=== PATIENT | male | born 1960 | race Caucasian/White ===

== ENCOUNTER 2016-08-10 13:41 | Emergency (ER) | payer OTHER ==
[2016-08-10 14:16] LABS: BASO % 0.4 % (0.0-1.0); EOS # 0.1 K/mm3 (0.0-0.50); EOS % 2.2 % (0.0-3.0); LARGE UNSTAINED CELL # 0.2 K/mm3 (0.0-0.4); LARGE UNSTAINED CELL % 3.6 % (0.0-4.0); LYMPH # 1.6 K/mm3 (1.5-4.5); MEAN CORPUSCULAR HEMOGLOBIN 30.8 pg (27.0-33.0); MEAN CORPUSCULAR HGB CONC 32.9 g/dl (32.0-36.5); MEAN CORPUSCULAR VOLUME 93.7 fl (80.0-96.0); MONO # 0.4 K/mm3 (0.0-0.8); MONO % 7.3 % (0.0-5.0); NEUTROPHILS # 3.1 K/mm3 (1.8-7.7); NEUTROPHILS % 57.4 % (36.0-66.0); PLATELET COUNT, AUTOMATED 257 k/mm3 (150-450); RED CELL DISTRIBUTION WIDTH 14.1 % (11.5-14.5); WHITE BLOOD COUNT 5.4 K/mm3 (4.0-10.0)
[2016-08-10 14:27] LABS: ANION GAP 9 MEQ/L (8-16); BLOOD UREA NITROGEN 14 MG/DL (7-18); CALCIUM LEVEL 8.7 MG/DL (8.5-10.1); CARBON DIOXIDE LEVEL 28 MEQ/L (21-32); CHLORIDE LEVEL 106 MEQ/L (98-107); GLOMERULAR FILTRATION RATE > 60.0 (>56); GLUCOSE, FASTING 111 MG/DL (70-105); POTASSIUM SERUM 3.8 MEQ/L (3.5-5.1); SODIUM LEVEL 143 MEQ/L (136-145)
--- NOTE | 2016-08-10 17:09 | REP ---
PA and lateral chest: Comparison is 07/05/2012. There is a focal zone of discoid atelectasis peripherally in the right upper lobe. There is a small stable nodule inferiorly in the right lung, unchanged, compatible with granuloma. The lung allred otherwise clear. No pleural effusions. Cardiac size is normal. The elise, mediastinum, bony thorax are unchanged and unremarkable. Signed by Ever Martinez MD 08/10/2016 05:01 P
--- NOTE | 2016-08-10 21:27 | EDDOCDS ---
Physician Documentation [facility] Name: Neville Dorman Age: 55 yrs Sex: Male : 1960 Arrival Date: 08/10/2016 Time: 13:41 Bed 10 Private MD: Disposition: 08/10 18:38 I have independently interviewed and examined the patient, and I agree with the br1 investigation, diagnosis and treatment plan as documented by the Resident. Disposition: 08/10/16 21:16 Discharged to Home/Self Care. Impression: Chest pain, unspecified, Syncope and collapse. - Condition is Stable. - Discharge Instructions: Near-Syncope. - Medication Reconciliation, Local Pharmacy Hours form. - Follow up: Rajat Motley MD; When: Call to arrange an appointment; Reason: Recheck today's complaints. - Problem is new. - Symptoms have improved. Historical: - Allergies: Cephalexin; - Home Meds: 1. aspirin 81 mg oral TbEC once daily 2. Crestor 10 mg Oral tab 1 tab once daily 3. metformin 750 mg Oral Tb24 1 tab once daily 4. Protonix 40 mg Oral TbEC 1 tab once daily 5. lisinopril 20 mg oral tab once daily - PMHx: Anxiety; Diabetes - NIDDM: controlled; GERD; Hypercholesterolemia; Hypertension; left hip replacement; CT; - PSHx: Hernia repair; Orthopedic Surgery; Coronary Stents; - Social history: Smoking status: Patient states former smoker of tobacco. No barriers to communication noted, The patient speaks fluent Macedonian, Speaks appropriately for age. - Family history: Not pertinent. - : The pt / caregiver states he / she is not on anticoagulants. Home medication list is obtained from pill bottles. - Exposure Risk Screening:: None identified. Vital Signs: 13:51 BP 138 / 78 (auto/); bcj 13:52 Pulse 66 MON; bcj 13:52 BP 146 / 81; Pulse 80; Resp 16; Temp 97.9; Pulse Ox 97% on R/A; Weight 132.45 kg / 292 bcj lbs; Height 6 ft. 2 in. (187.96 cm); Pain 0/10; 17:28 BP 142 / 67 (auto/); bcj 17:29 Pulse 62 MON; Pulse Ox 97% ; bcj 17:43 BP 149 / 63 (auto/); bcj 17:43 Pulse 62 MON; Pulse Ox 97% ; bcj 17:58 BP 105 / 52 (auto/); bcj 17:58 Pulse 64 MON; Pulse Ox 95% ; bcj 18:13 BP 124 / 74 (auto/); bcj 18:13 Pulse 62 MON; Pulse Ox 95% ; bcj 18:28 BP 130 / 72 (auto/); mlc 18:28 Pulse 62 MON; Pulse Ox 95% ; mlc 18:58 BP 118 / 67 (auto/); mlc 18:58 Pulse 66 MON; Pulse Ox 95% ; mlc 19:28 Pulse 72 MON; Pulse Ox 93% ; mlc 19:28 BP 137 / 62 (auto/); mlc 19:43 BP 140 / 63 (auto/); mlc 19:53 Pulse 70 MON; Pulse Ox 96% ; mlc 19:58 Pulse 68 MON; Pulse Ox 92% ; mlc 19:58 BP 132 / 61 (auto/); mlc 20:13 BP 114 / 53 (auto/); mlc 20:13 Pulse 68 MON; Pulse Ox 94% ; mlc 20:28 BP 126 / 61 (auto/); mlc 20:28 Pulse 62 MON; Pulse Ox 91% ; mlc 20:43 BP 131 / 62 (auto/); mlc 20:43 Pulse 62 MON; Pulse Ox 91% ; mlc 20:58 BP 129 / 58 (auto/); mlc 21:07 Pulse 64 MON; Pulse Ox 91% ; mlc 21:25 BP 137 / 75; Pulse 68; Resp 20; Temp 98.1; Pulse Ox 94% ; Pain 0/10; mlc 13:52 Body Mass Index 37.49 (132.45 kg, 187.96 cm) [facility] MDM: 13:45 ECG WITH READING ER PHYS+CARDIAG ordered. EDMS 13:55 Sas Programmer Remote/Pulse Ox/q 30 min VS ordered. br1 13:55 IV Saline Lock ordered. br1 13:55 Rhythm Strip to chart ordered. br1 13:55 Undress patient appropriately for examination ordered. br1 13:56 Basic Metabolic Profile Ordered. EDMS 13:56 CBC with Diff Ordered. EDMS 13:56 Cardiac Injury Profile Ordered. EDMS 13:56 Troponin Ordered. EDMS 14:58 Vital Signs ordered. br1 15:00 Cardiac Injury Profile Reviewed. jo4 15:00 Troponin Reviewed. jo4 15:00 Basic Metabolic Profile Reviewed. jo4 15:01 CBC with Diff Reviewed. jo4 15:01 Orthostatic VS ordered. jo4 15:02 Redraw CIP &Troponin (put time in details section) ordered. jo4 15:02 Repeat EKG (put time details section) ordered. jo4 15:05 Chest, 2 View (pa\E\lat) Ordered. EDMS 15:15 Repeat EKG (put time details section) complete. ar3 15:15 Redraw CIP &Troponin (put time in details section) complete. ar3 15:16 CARDIAC MARKER PANEL Ordered. EDMS 15:17 ECG WITH READING ER PHYS ordered. EDMS 16:02 Financial registration complete. gjb 16:37 [facility] Payment Agreement was scanned into [employer] and attached to record. gjb 17:06 REGULAR+DIET ordered. EDMS 18:17 Chest, 2 View (pa\E\lat) Reviewed. jo4 18:38 ED course: Seen with resident agree with findings. Patient has episode of weakness, br1 fatigue, diaphoresis, near syncope. No chest pain or shortness of breath and symptoms now resolved. Labs, EKG, chest Xray unrevealing. Plan serial EKG, enzymes, re-eval. Patient agrees with plan.. 21:14 CARDIAC MARKER PANEL Reviewed. cs11 Signatures: Dispatcher [employer] Marino Dolan RN RN bcj Roggie, Brian, MD MD br1 Alma Christie, TUFTER TUFTER ar3 Farhat Knott, DO cs11 Roselia Molina RN RN mlc Beck, Gabriela b Rina Mcpherson, DO DO jo4 The chart was reviewed and I authenticate all verbal orders and agree with the evaluation and treatment provided.Attachments: 16:37 [facility] Payment Agreement gjb MTDD
--- NOTE | 2016-08-10 21:27 | EDDOCDS ---
Nurse's Notes [facility] Name: Neville Dorman Age: 55 yrs Sex: Male : 1960 Arrival Date: 08/10/2016 Time: 13:41 Bed 10 Private MD: Diagnosis: Chest pain, unspecified;Syncope and collapse Presentation: 08/10 13:57 Presenting complaint: Patient states: has been feeling weak for last day or so - bcj developed chest pain dizziness this am. still feels dizzy on arrival. states feels more tired than usual. denies SOB resp distress. denies nausea vomiting. brief episode of sweating resolved now. Aspirin was taken CASE COORDINATOR. Adult Sepsis Screening: The patient does not have new or worsening altered mentation. Patient's respiratory rate is less than 22. Systolic blood pressure is greater than 100. Patient has a qSOFA score of 0- Negative Sepsis Screen. Suicide/Homicide risk assessment- the patient denies having any suicidal and/or homicidal ideations and does not present with any other emotional, behavioral or mental health complaints. Status: Patient is not a office services specialist or dependent. Transition of care: patient was not received from another setting of care. 13:57 Acuity: [place]QUALE Level 2 bcj 13:57 Method Of Arrival: Ambulance bcj Triage Assessment: 14:03 General: Appears in no apparent distress, comfortable, Behavior is cooperative. Pain: bcj Location: head Pain currently is 8 out of 10 on a pain scale. HIV screening NA for this visit Offered previously. Cardiovascular: Chest pain is described as mild, radiates Does not radiate. episodes last > 5 minutes began 2 hours prior to arrival. Respiratory: Airway is patent Respiratory effort is even, unlabored, Respiratory pattern is regular, symmetrical. Derm: Skin is pink, warm & dry. Historical: - Allergies: Cephalexin; - Home Meds: 1. aspirin 81 mg oral TbEC once daily 2. Crestor 10 mg Oral tab 1 tab once daily 3. metformin 750 mg Oral Tb24 1 tab once daily 4. Protonix 40 mg Oral TbEC 1 tab once daily 5. lisinopril 20 mg oral tab once daily - PMHx: Anxiety; Diabetes - NIDDM: controlled; GERD; Hypercholesterolemia; Hypertension; left hip replacement; [place]; - PSHx: Hernia repair; Orthopedic Surgery; Coronary Stents; - Social history: Smoking status: Patient states former smoker of tobacco. No barriers to communication noted, The patient speaks fluent Indian, Speaks appropriately for age. - Family history: Not pertinent. - : The pt / caregiver states he / she is not on anticoagulants. Home medication list is obtained from pill bottles. - Exposure Risk Screening:: None identified. Screenin:57 Screening information is obtained from the patient. Fall risk: No risks identified. bcj Assistance ADL's: requires no assistance with activities of daily living. Abuse/DV Screen: The patient / caregiver reports he/she is: not in a situation that causes fear, pain or injury. Nutritional screening: No deficits noted. Advance Directives: Currently, there is. home support is adequate. Assessment: 16:57 General: Appears in no apparent distress, comfortable, Behavior is cooperative. Pain: bcj Denies pain. Cardiovascular: Rhythm is sinus rhythm. 18:15 General: Appears in no apparent distress, comfortable, Behavior is cooperative. Pain: bcj Denies pain. Cardiovascular: Rhythm is sinus rhythm. Derm: Skin is pink, warm & dry. 19:18 General: Appears in no apparent distress, comfortable, Behavior is appropriate for age, mlc cooperative, pleasant. Pain: Denies pain. Neurological: Level of Consciousness is awake, alert, obeys commands, Oriented to person, place, time. Cardiovascular: Capillary refill < 3 seconds Heart tones S1 S2 present Rhythm is regular Chest pain is denied. Respiratory: Airway is patent Respiratory effort is even, unlabored, Respiratory pattern is regular, Breath sounds are clear bilaterally. Derm: Skin is pink, warm & dry. 19:54 Reassessment: Patient appears in no apparent distress at this time. Patient denies pain mlc at this time. no changes since prior. resp easy/unlabored. . 21:08 Reassessment: Patient appears in no apparent distress at this time. General: Appears mlc comfortable, to be sleeping. Respiratory: Airway is patent Respiratory effort is even, unlabored, Respiratory pattern is regular. 21:25 General: Appears in no apparent distress, comfortable, Behavior is cooperative. Pain: mlc Denies pain. Neurological: Level of Consciousness is awake, alert, Oriented to person, place, time. Respiratory: Airway is patent Respiratory effort is even, unlabored, Respiratory pattern is regular. Vital Signs: 13:51 BP 138 / 78 (auto/); bcj 13:52 Pulse 66 MON; bcj 13:52 BP 146 / 81; Pulse 80; Resp 16; Temp 97.9; Pulse Ox 97% on R/A; Weight 132.45 kg; j Height 6 ft. 2 in. (187.96 cm); Pain 0/10; 17:28 BP 142 / 67 (auto/); bcj 17:29 Pulse 62 MON; Pulse Ox 97% ; bcj 17:43 BP 149 / 63 (auto/); bcj 17:43 Pulse 62 MON; Pulse Ox 97% ; bcj 17:58 BP 105 / 52 (auto/); bcj 17:58 Pulse 64 MON; Pulse Ox 95% ; bcj 18:13 BP 124 / 74 (auto/); bcj 18:13 Pulse 62 MON; Pulse Ox 95% ; bcj 18:28 BP 130 / 72 (auto/); mlc 18:28 Pulse 62 MON; Pulse Ox 95% ; mlc 18:58 BP 118 / 67 (auto/); mlc 18:58 Pulse 66 MON; Pulse Ox 95% ; mlc 19:28 Pulse 72 MON; Pulse Ox 93% ; mlc 19:28 BP 137 / 62 (auto/); mlc 19:43 BP 140 / 63 (auto/); mlc 19:53 Pulse 70 MON; Pulse Ox 96% ; mlc 19:58 Pulse 68 MON; Pulse Ox 92% ; mlc 19:58 BP 132 / 61 (auto/); mlc 20:13 BP 114 / 53 (auto/); mlc 20:13 Pulse 68 MON; Pulse Ox 94% ; mlc 20:28 BP 126 / 61 (auto/); mlc 20:28 Pulse 62 MON; Pulse Ox 91% ; mlc 20:43 BP 131 / 62 (auto/); mlc 20:43 Pulse 62 MON; Pulse Ox 91% ; mlc 20:58 BP 129 / 58 (auto/); mlc 21:07 Pulse 64 MON; Pulse Ox 91% ; mlc 21:25 BP 137 / 75; Pulse 68; Resp 20; Temp 98.1; Pulse Ox 94% ; Pain 0/10; mlc 13:52 Body Mass Index 37.49 (132.45 kg, 187.96 cm) [facility] Vitals: 14:03 Log In Time N/A - ambulance arrival. [facility] 16:57 Refer to monitor trend for complete vital signs trends. [facility] ED Course: 13:42 Patient visited by Alma Christie PCA. ar3 13:42 Patient moved to Waiting ar3 13:42 Patient moved to 3 ar3 13:59 Triage Initiated bcj 14:04 Rina Mcpherson DO is PHCP. jo4 14:04 Michael Hackett MD is Attending Physician. jo4 14:07 Patient visited by Marino Castorena RN. bcj 15:00 Patient visited by Rina Mcpherson DO. jo4 15:00 Patient visited by Rina Mcpherson DO. jo4 15:11 Patient visited by Marino Castorena RN. bcj 15:58 Patient visited by Michael Hackett MD. br1 16:36 Patient name changed from Neville\S\V\S\Deveines\S\ to Neville\S\ \S\Deveines. EDMS 16:37 [facility] Payment Agreement was scanned into [employer] and attached to record. gjb 16:57 No apparent distress. Resting quietly. awaiting re-evaluation by ER physician. bcj 16:57 The patient / caregiver is instructed regarding the plan of care and ED course. Patient bcj has correct armband on for positive identification. Placed in gown. Placed in psych safe attire. Call light in reach. Side rails up X2. Adult w/ patient. school bus monitor on. Pulse ox on. NIBP on. 16:57 Inserted saline lock: 18 gauge in right antecubital area. Labs drawn. (by ED staff). bcj Sent per order to lab. 17:00 Patient visited by Marino Castorena RN. bcj 17:25 Patient moved to 10 pml 17:29 No apparent distress. Resting quietly. awaiting re-evaluation by ER physician. bcj 17:29 IV is intact. bcj 17:44 Chest, 2 View (pa\E\lat) Returned. EDMS 18:16 Patient visited by Marino Castorena RN. bcj 19:16 Roselia Molina RN is Primary Nurse. mlc 19:19 Patient visited by Roselia Molina RN. mlc 19:37 Attending Physician role handed off by Michael Hackett MD cs11 19:37 Farhat Knott DO is Attending Physician. cs11 19:54 CARDIAC MARKER PANEL Sent. mlc 19:56 Patient visited by Roselia Molina RN. mlc 20:00 Patient visited by Frances Valera PCA. lawrence 20:00 EKG done. (by ED staff). Reviewed by Farhat Knott DO. lawrence 21:07 Patient visited by Frances Valera PCA. lawrence 21:09 Patient visited by Roselia Molina RN. mlc 21:15 Rajat Motley MD is Referral Physician. cs11 21:25 Discontinued IV lock intact, bleeding controlled, pressure dressing applied, No mlc redness/swelling at site. No procedures done that require assistance. Order Results: Lab Order: Basic Metabolic Profile; SPEC'M 08/10/16 13:57 Test: GLUCOSE, FASTING; Value: 111; Range: 70-105; Abnormal: Above high normal; Units: MG/DL; Status: F Test: BLOOD UREA NITROGEN; Value: 14; Range: 7-18; Units: MG/DL; Status: F Test: CREATININE FOR GFR; Value: 0.90; Range: 0.70-1.30; Units: MG/DL; Status: F Test: GLOMERULAR FILTRATION RATE; Value: > 60.0; Range: >56; Status: F Test: SODIUM LEVEL; Value: 143; Range: 136-145; Units: MEQ/L; Status: F Test: POTASSIUM SERUM; Value: 3.8; Range: 3.5-5.1; Units: MEQ/L; Status: F Test: CHLORIDE LEVEL; Value: 106; Range: 98-107; Units: MEQ/L; Status: F Test: CARBON DIOXIDE LEVEL; Value: 28; Range: 21-32; Units: MEQ/L; Status: F Test: ANION GAP; Value: 9; Range: 8-16; Units: MEQ/L; Status: F Test: CALCIUM LEVEL; Value: 8.7; Range: 8.5-10.1; Units: MG/DL; Status: F Test Note: ; Units are mL/min/1.73 m2 Chronic Kidney Disease Staging per NKF: Stage I & II GFR >=60 Normal to Mildly Decreased Stage III GFR 30-59 Moderately Decreased Stage IV GFR 15-29 Severely Decreased Stage V GFR <15 Very Little GFR Left ESRD GFR <15 on HOSPITAL WELLNESS COORDINATOR Lab Order: CBC with Diff; SPEC'M 08/10/16 13:57 Test: WHITE BLOOD COUNT; Value: 5.4; Range: 4.0-10.0; Units: K/mm3; Status: F Test: RED BLOOD COUNT; Value: 4.70; Range: 4.30-6.10; Units: M/mm3; Status: F Test: HEMOGLOBIN; Value: 14.5; Range: 14.0-18.0; Units: g/dl; Status: F Test: HEMATOCRIT; Value: 44.0; Range: 42.0-52.0; Units: %; Status: F Test: MEAN CORPUSCULAR VOLUME; Value: 93.7; Range: 80.0-96.0; Units: fl; Status: F Test: MEAN CORPUSCULAR HEMOGLOBIN; Value: 30.8; Range: 27.0-33.0; Units: pg; Status: F Test: MEAN CORPUSCULAR HGB CONC; Value: 32.9; Range: 32.0-36.5; Units: g/dl; Status: F Test: RED CELL DISTRIBUTION WIDTH; Value: 14.1; Range: 11.5-14.5; Units: %; Status: F Test: PLATELET COUNT, AUTOMATED; Value: 257; Range: 150-450; Units: k/mm3; Status: F Test: NEUTROPHILS %; Value: 57.4; Range: 36.0-66.0; Units: %; Status: F Test: LYMPH %; Value: 29.0; Range: 24.0-44.0; Units: %; Status: F Test: MONO %; Value: 7.3; Range: 0.0-5.0; Abnormal: Above high normal; Units: %; Status: F Test: EOS %; Value: 2.2; Range: 0.0-3.0; Units: %; Status: F Test: BASO %; Value: 0.4; Range: 0.0-1.0; Units: %; Status: F Test: LARGE UNSTAINED CELL %; Value: 3.6; Range: 0.0-4.0; Units: %; Status: F Test: NEUTROPHILS #; Value: 3.1; Range: 1.8-7.7; Units: K/mm3; Status: F Test: LYMPH #; Value: 1.6; Range: 1.5-4.5; Units: K/mm3; Status: F Test: MONO #; Value: 0.4; Range: 0.0-0.8; Units: K/mm3; Status: F Test: EOS #; Value: 0.1; Range: 0.0-0.50; Units: K/mm3; Status: F Test: BASO #; Value: 0.0; Range: 0.0-0.2; Units: K/mm3; Status: F Test: LARGE UNSTAINED CELL #; Value: 0.2; Range: 0.0-0.4; Units: K/mm3; Status: F Lab Order: Cardiac Injury Profile; [facility] 08/10/16 13:57 Test: CPK CREATINE PHOSPHOKINASE; Value: 152; Range: 39-308; Units: U/L; Status: F Test: CK-MB VALUE MASS; Value: 1.9; Range: 0.0-3.6; Units: NG/ML; Status: F Test: MB/CK RELATIVE INDEX; Value: 1.25; Range: < OR =4; Status: F Test Note: ; DIAGNOSIS CRITERIA MMB ng/ml Relative Index (RI) NON-AMI < or = 5 N/A FRYE ZONE > 5 < or = 4 AMI > 5 > 4 Lab Order: Troponin; [facility] 08/10/16 13:57 Test: TROPONIN I; Value: < 0.02; Range: < 0.10; Units: NG/ML; Status: F Test Note: ; Troponin I Reference Interval for Nanomech LOCI: 99th Percentile= 0.00-0.045 ng/ml Risk Stratification: <= 0.10 ng/ml Decreased Risk for Adverse Clinical Events. 0.10-1.50 ng/ml Increased Risk for Adverse Clinical Events. Evaluation of additional criterion and/or repeat testing in 2-6 hours is suggested to rule out myocardial damage. >= 1.50 ng/ml Indicative of Myocardial Injury. Lab Order: CARDIAC MARKER PANEL; [facility] 08/10/16 19:50 Test: CPK CREATINE PHOSPHOKINASE; Value: 121; Range: 39-308; Units: U/L; Status: F Test: CK-MB VALUE MASS; Value: 1.3; Range: 0.0-3.6; Units: NG/ML; Status: F Test: MB/CK RELATIVE INDEX; Value: 1.07; Range: < OR =4; Status: F Test: TROPONIN I; Value: < 0.02; Range: < 0.10; Units: NG/ML; Status: F Test Note: ; DIAGNOSIS CRITERIA MMB ng/ml Relative Index (RI) NON-AMI < or = 5 N/A FRYE ZONE > 5 < or = 4 AMI > 5 > 4 Radiology Order: Chest, 2 View (pa\E\lat) Test: Chest, 2 View (pa\E\lat) REASON FOR EXAMINATION: Shortness of Breath; PA and lateral chest:; ; Comparison is 07/05/2012.; ; There is a focal zone of discoid atelectasis peripherally in the right upper; lobe.; ; There is a small stable nodule inferiorly in the right lung, unchanged,; compatible with granuloma.; ; The lung allred otherwise clear. No pleural effusions. Cardiac size is normal.; The elise, mediastinum, bony thorax are unchanged and unremarkable.; ; ; Signed by; Ever Martinez MD 08/10/2016 05:01 P; Outcome: 21:16 Discharge ordered by Provider. cs11 21:25 Discharge Assessment: Patient awake, alert and oriented x 3. No cognitive and/or mlc functional deficits noted. Patient verbalized understanding of disposition instructions. patient administered narcotics - no. The following High Risk Discharge criteria are identified: None. Discharged to home ambulatory. Condition: good Condition: stable. Discharge instructions given to patient, Instructed on discharge instructions, follow up and referral plans. Demonstrated understanding of instructions, Pt was receptive of discharge instructions/ teaching. No special radiology studies were completed. Property sent home with patient. 21:26 Patient left the ED. mlc Signatures: Dispatcher [employer] EDMarino Butler RN RN bcj Roggie, Brian, MD MD br1 Alma Christie, MANAGER CHEMISTRY MANAGER CHEMISTRY ar3 Frances Valera, MANAGER CHEMISTRY MANAGER CHEMISTRY Jigna Degroot RN RN pml Schiff, Craig, DO DO cs11 Roselia Molina RN RN mlc Beck, Gabriela gjb Oosthuizen, Jane, DO DO jo4 MTDD
--- NOTE | 2016-08-11 13:04 | ECGEPIP ---
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
--- NOTE | 2016-08-11 13:11 | ECGEPIP ---
Stationary ECG Study [facility] - ED Test Date: 2016-08-10 Pat Name: FAVIO MENDENHALL Department: Room: - Gender: M Sqe: kirsty : 1960 Requested By: PARESH HARRIS Order Number: [id number] Reading MD: Rocío Webster Measurements Intervals [place] Rate: 67 P: -85 [place]: 176 QRS: 36 QRSD: 97 T: 18 QT: 387 QTc: 411 Interpretive Statements SINUS RHYTHM NSTTW ABNORMALITY SIMILAR 08/10/16 13:51 Electronically Signed On 08-11-2016 13:11:29 EST by Rocío Webster
--- NOTE | 2016-08-12 22:27 | EDDOCDS ---
Physician Documentation [facility] Name: Neville Dorman Age: 55 yrs Sex: Male : 1960 Arrival Date: 08/10/2016 Time: 13:41 Bed 10 Private MD: Disposition: 08/10 18:38 I have independently interviewed and examined the patient, and I agree with the br1 investigation, diagnosis and treatment plan as documented by the Resident. Disposition: 08/10/16 21:16 Discharged to Home/Self Care. Impression: Chest pain, unspecified, Syncope and collapse. - Condition is Stable. - Discharge Instructions: Near-Syncope. - Medication Reconciliation, Local Pharmacy Hours form. - Follow up: Rajat Motley MD; When: Call to arrange an appointment; Reason: Recheck today's complaints. - Problem is new. - Symptoms have improved. Historical: - Allergies: Cephalexin; - Home Meds: 1. aspirin 81 mg oral TbEC once daily 2. Crestor 10 mg Oral tab 1 tab once daily 3. metformin 750 mg Oral Tb24 1 tab once daily 4. Protonix 40 mg Oral TbEC 1 tab once daily 5. lisinopril 20 mg oral tab once daily - PMHx: Anxiety; Diabetes - NIDDM: controlled; GERD; Hypercholesterolemia; Hypertension; left hip replacement; [place]; - PSHx: Hernia repair; Orthopedic Surgery; Coronary Stents; - Social history: Smoking status: Patient states former smoker of tobacco. No barriers to communication noted, The patient speaks fluent Bulgarian, Speaks appropriately for age. - Family history: Not pertinent. - : The pt / caregiver states he / she is not on anticoagulants. Home medication list is obtained from pill bottles. - Exposure Risk Screening:: None identified. Vital Signs: 13:51 BP 138 / 78 (auto/); bcj 13:52 Pulse 66 MON; bcj 13:52 BP 146 / 81; Pulse 80; Resp 16; Temp 97.9; Pulse Ox 97% on R/A; Weight 132.45 kg / 292 bcj lbs; Height 6 ft. 2 in. (187.96 cm); Pain 0/10; 17:28 BP 142 / 67 (auto/); bcj 17:29 Pulse 62 MON; Pulse Ox 97% ; bcj 17:43 BP 149 / 63 (auto/); bcj 17:43 Pulse 62 MON; Pulse Ox 97% ; bcj 17:58 BP 105 / 52 (auto/); bcj 17:58 Pulse 64 MON; Pulse Ox 95% ; bcj 18:13 BP 124 / 74 (auto/); bcj 18:13 Pulse 62 MON; Pulse Ox 95% ; bcj 18:28 BP 130 / 72 (auto/); mlc 18:28 Pulse 62 MON; Pulse Ox 95% ; mlc 18:58 BP 118 / 67 (auto/); mlc 18:58 Pulse 66 MON; Pulse Ox 95% ; mlc 19:28 Pulse 72 MON; Pulse Ox 93% ; mlc 19:28 BP 137 / 62 (auto/); mlc 19:43 BP 140 / 63 (auto/); mlc 19:53 Pulse 70 MON; Pulse Ox 96% ; mlc 19:58 Pulse 68 MON; Pulse Ox 92% ; mlc 19:58 BP 132 / 61 (auto/); mlc 20:13 BP 114 / 53 (auto/); mlc 20:13 Pulse 68 MON; Pulse Ox 94% ; mlc 20:28 BP 126 / 61 (auto/); mlc 20:28 Pulse 62 MON; Pulse Ox 91% ; mlc 20:43 BP 131 / 62 (auto/); mlc 20:43 Pulse 62 MON; Pulse Ox 91% ; mlc 20:58 BP 129 / 58 (auto/); mlc 21:07 Pulse 64 MON; Pulse Ox 91% ; mlc 21:25 BP 137 / 75; Pulse 68; Resp 20; Temp 98.1; Pulse Ox 94% ; Pain 0/10; mlc 13:52 Body Mass Index 37.49 (132.45 kg, 187.96 cm) [facility] MDM: 13:45 ECG WITH READING ER PHYS+CARDIAG ordered. EDMS 13:55 Oil Treater/Pulse Ox/q 30 min VS ordered. br1 13:55 IV Saline Lock ordered. br1 13:55 Rhythm Strip to chart ordered. br1 13:55 Undress patient appropriately for examination ordered. br1 13:56 Basic Metabolic Profile Ordered. EDMS 13:56 CBC with Diff Ordered. EDMS 13:56 Cardiac Injury Profile Ordered. EDMS 13:56 Troponin Ordered. EDMS 14:58 Vital Signs ordered. br1 15:00 Cardiac Injury Profile Reviewed. jo4 15:00 Troponin Reviewed. jo4 15:00 Basic Metabolic Profile Reviewed. jo4 15:01 CBC with Diff Reviewed. jo4 15:01 Orthostatic VS ordered. jo4 15:02 Redraw CIP &Troponin (put time in details section) ordered. jo4 15:02 Repeat EKG (put time details section) ordered. jo4 15:05 Chest, 2 View (pa\E\lat) Ordered. EDMS 15:15 Repeat EKG (put time details section) complete. ar3 15:15 Redraw CIP &Troponin (put time in details section) complete. ar3 15:16 CARDIAC MARKER PANEL Ordered. EDMS 15:17 ECG WITH READING ER PHYS ordered. EDMS 16:02 Financial registration complete. gjb 16:37 [facility] Payment Agreement was scanned into [employer] and attached to record. gjb 17:06 REGULAR+DIET ordered. EDMS 18:17 Chest, 2 View (pa\E\lat) Reviewed. jo4 18:38 ED course: Seen with resident agree with findings. Patient has episode of weakness, br1 fatigue, diaphoresis, near syncope. No chest pain or shortness of breath and symptoms now resolved. Labs, EKG, chest Xray unrevealing. Plan serial EKG, enzymes, re-eval. Patient agrees with plan.. 21:14 CARDIAC MARKER PANEL Reviewed. cs11 08/11 15:42 ECG/EKG was scanned into [employer] and attached to record. kf3 16:06 T-Sheet-- Draft Copy was scanned into [employer] and attached to record. klr 17:03 ECG/EKG was scanned into [employer] and attached to record. kf3 Signatures: Dispatcher [employer] EDPA Marino Castorena RN RN bcj Fiddler, Kris, Reg Reg kf3 Michael Hackett MD MD br1 Alma Christie, LOCK [employer] DAM EQUIPMENT REPAIRER LOCK AND DAM EQUIPMENT REPAIRER ar3 Farhat Knott, DO DO cs11 Roselia Molina RN RN mlc Beck, Gabriela b Rina Mcpherson, DO DO jo4 Sonal Butler klbo The chart was reviewed and I authenticate all verbal orders and agree with the evaluation and treatment provided.Attachments: 08/10 16:37 [facility] [place] [facility] Payment Agreement [facility] 08/11 15:42 ECG/EKG kf3 16:06 T-Sheet-- Draft Copy klr 17:03 ECG/EKG kf3 Chart Complete MTDD
--- NOTE | 2016-08-12 22:27 | EDDOCDS ---
Nurse's Notes [facility] Name: Neville Dorman Age: 55 yrs Sex: Male : 1960 Arrival Date: 08/10/2016 Time: 13:41 Bed 10 Private MD: Diagnosis: Chest pain, unspecified;Syncope and collapse Presentation: 08/10 13:57 Presenting complaint: Patient states: has been feeling weak for last day or so - bcj developed chest pain dizziness this am. still feels dizzy on arrival. states feels more tired than usual. denies SOB resp distress. denies nausea vomiting. brief episode of sweating resolved now. Aspirin was taken MEDIA OPERATOR. Adult Sepsis Screening: The patient does not have new or worsening altered mentation. Patient's respiratory rate is less than 22. Systolic blood pressure is greater than 100. Patient has a qSOFA score of 0- Negative Sepsis Screen. Suicide/Homicide risk assessment- the patient denies having any suicidal and/or homicidal ideations and does not present with any other emotional, behavioral or mental health complaints. Status: Patient is not a equipment service technician or dependent. Transition of care: patient was not received from another setting of care. 13:57 Acuity: PASQUALE Level 2 bcj 13:57 Method Of Arrival: Ambulance bcj Triage Assessment: 14:03 General: Appears in no apparent distress, comfortable, Behavior is cooperative. Pain: bcj Location: head Pain currently is 8 out of 10 on a pain scale. HIV screening NA for this visit Offered previously. Cardiovascular: Chest pain is described as mild, radiates Does not radiate. episodes last > 5 minutes began 2 hours prior to arrival. Respiratory: Airway is patent Respiratory effort is even, unlabored, Respiratory pattern is regular, symmetrical. Derm: Skin is pink, warm & dry. Historical: - Allergies: Cephalexin; - Home Meds: 1. aspirin 81 mg oral TbEC once daily 2. Crestor 10 mg Oral tab 1 tab once daily 3. metformin 750 mg Oral Tb24 1 tab once daily 4. Protonix 40 mg Oral TbEC 1 tab once daily 5. lisinopril 20 mg oral tab once daily - PMHx: Anxiety; Diabetes - NIDDM: controlled; GERD; Hypercholesterolemia; Hypertension; left hip replacement; [place]; - PSHx: Hernia repair; Orthopedic Surgery; Coronary Stents; - Social history: Smoking status: Patient states former smoker of tobacco. No barriers to communication noted, The patient speaks fluent Panamanian, Speaks appropriately for age. - Family history: Not pertinent. - : The pt / caregiver states he / she is not on anticoagulants. Home medication list is obtained from pill bottles. - Exposure Risk Screening:: None identified. Screenin:57 Screening information is obtained from the patient. Fall risk: No risks identified. bcj Assistance ADL's: requires no assistance with activities of daily living. Abuse/DV Screen: The patient / caregiver reports he/she is: not in a situation that causes fear, pain or injury. Nutritional screening: No deficits noted. Advance Directives: Currently, there is. home support is adequate. Assessment: 16:57 General: Appears in no apparent distress, comfortable, Behavior is cooperative. Pain: bcj Denies pain. Cardiovascular: Rhythm is sinus rhythm. 18:15 General: Appears in no apparent distress, comfortable, Behavior is cooperative. Pain: bcj Denies pain. Cardiovascular: Rhythm is sinus rhythm. Derm: Skin is pink, warm & dry. 19:18 General: Appears in no apparent distress, comfortable, Behavior is appropriate for age, mlc cooperative, pleasant. Pain: Denies pain. Neurological: Level of Consciousness is awake, alert, obeys commands, Oriented to person, place, time. Cardiovascular: Capillary refill < 3 seconds Heart tones S1 S2 present Rhythm is regular Chest pain is denied. Respiratory: Airway is patent Respiratory effort is even, unlabored, Respiratory pattern is regular, Breath sounds are clear bilaterally. Derm: Skin is pink, warm & dry. 19:54 Reassessment: Patient appears in no apparent distress at this time. Patient denies pain mlc at this time. no changes since prior. resp easy/unlabored. . 21:08 Reassessment: Patient appears in no apparent distress at this time. General: Appears mlc comfortable, to be sleeping. Respiratory: Airway is patent Respiratory effort is even, unlabored, Respiratory pattern is regular. 21:25 General: Appears in no apparent distress, comfortable, Behavior is cooperative. Pain: mlc Denies pain. Neurological: Level of Consciousness is awake, alert, Oriented to person, place, time. Respiratory: Airway is patent Respiratory effort is even, unlabored, Respiratory pattern is regular. Vital Signs: 13:51 BP 138 / 78 (auto/); bcj 13:52 Pulse 66 MON; bcj 13:52 BP 146 / 81; Pulse 80; Resp 16; Temp 97.9; Pulse Ox 97% on R/A; Weight 132.45 kg; j Height 6 ft. 2 in. (187.96 cm); Pain 0/10; 17:28 BP 142 / 67 (auto/); bcj 17:29 Pulse 62 MON; Pulse Ox 97% ; bcj 17:43 BP 149 / 63 (auto/); bcj 17:43 Pulse 62 MON; Pulse Ox 97% ; bcj 17:58 BP 105 / 52 (auto/); bcj 17:58 Pulse 64 MON; Pulse Ox 95% ; bcj 18:13 BP 124 / 74 (auto/); bcj 18:13 Pulse 62 MON; Pulse Ox 95% ; bcj 18:28 BP 130 / 72 (auto/); mlc 18:28 Pulse 62 MON; Pulse Ox 95% ; mlc 18:58 BP 118 / 67 (auto/); mlc 18:58 Pulse 66 MON; Pulse Ox 95% ; mlc 19:28 Pulse 72 MON; Pulse Ox 93% ; mlc 19:28 BP 137 / 62 (auto/); mlc 19:43 BP 140 / 63 (auto/); mlc 19:53 Pulse 70 MON; Pulse Ox 96% ; mlc 19:58 Pulse 68 MON; Pulse Ox 92% ; mlc 19:58 BP 132 / 61 (auto/); mlc 20:13 BP 114 / 53 (auto/); mlc 20:13 Pulse 68 MON; Pulse Ox 94% ; mlc 20:28 BP 126 / 61 (auto/); mlc 20:28 Pulse 62 MON; Pulse Ox 91% ; mlc 20:43 BP 131 / 62 (auto/); mlc 20:43 Pulse 62 MON; Pulse Ox 91% ; mlc 20:58 BP 129 / 58 (auto/); mlc 21:07 Pulse 64 MON; Pulse Ox 91% ; mlc 21:25 BP 137 / 75; Pulse 68; Resp 20; Temp 98.1; Pulse Ox 94% ; Pain 0/10; mlc 13:52 Body Mass Index 37.49 (132.45 kg, 187.96 cm) [facility] Vitals: 14:03 Log In Time N/A - ambulance arrival. [facility] 16:57 Refer to monitor trend for complete vital signs trends. [facility] ED Course: 13:42 Patient visited by Alma Christie PCA. ar3 13:42 Patient moved to Waiting ar3 13:42 Patient moved to 3 ar3 13:59 Triage Initiated bcj 14:04 Rina Mcpherson DO is PHCP. jo4 14:04 Lelo Hackett MD is Attending Physician. jo4 14:07 Patient visited by Marino Castorena RN. bcj 15:00 Patient visited by Rina Mcpherson DO. jo4 15:00 Patient visited by Rina Mcpherson DO. jo4 15:11 Patient visited by Marino Castorena RN. bcj 15:58 Patient visited by Lelo Hackett MD. br1 16:36 Patient name changed from Neville\S\V\S\Deveines\S\ to Neville\S\ \S\Deveines. EDMS 16:37 [facility] Payment Agreement was scanned into [employer] and attached to record. gjb 16:57 No apparent distress. Resting quietly. awaiting re-evaluation by ER physician. bcj 16:57 The patient / caregiver is instructed regarding the plan of care and ED course. Patient bcj has correct armband on for positive identification. Placed in gown. Placed in psych safe attire. Call light in reach. Side rails up X2. Adult w/ patient. surveillance system monitor on. Pulse ox on. NIBP on. 16:57 Inserted saline lock: 18 gauge in right antecubital area. Labs drawn. (by ED staff). bcj Sent per order to lab. 17:00 Patient visited by Marino Castorena RN. bcj 17:25 Patient moved to 10 pml 17:29 No apparent distress. Resting quietly. awaiting re-evaluation by ER physician. bcj 17:29 IV is intact. bcj 17:44 Chest, 2 View (pa\E\lat) Returned. EDMS 18:16 Patient visited by Marino Castorena RN. bcj 19:16 Roselia Molina RN is Primary Nurse. mlc 19:19 Patient visited by Roselia Molina RN. mlc 19:37 Attending Physician role handed off by Lelo Hackett MD cs11 19:37 Farhat Knott DO is Attending Physician. cs11 19:54 CARDIAC MARKER PANEL Sent. mlc 19:56 Patient visited by Roselia Molina RN. mlc 20:00 Patient visited by Frances Valera PCA. lawrence 20:00 EKG done. (by ED staff). Reviewed by Farhat Knott DO. lawrence 21:07 Patient visited by Frances Valera PCA. lawrence 21:09 Patient visited by Roselia Molina RN. mlc 21:15 Rajat Motley MD is Referral Physician. cs11 21:25 Discontinued IV lock intact, bleeding controlled, pressure dressing applied, No mlc redness/swelling at site. No procedures done that require assistance. 08/11 13:07 EKG-ADULT Returned. EDMS 13:42 ECG WITH READING ER PHYS Returned. EDMS 15:42 ECG/EKG was scanned into [employer] and attached to record. kf3 16:06 T-Sheet-- Draft Copy was scanned into [employer] and attached to record. klr 17:03 ECG/EKG was scanned into [employer] and attached to record. kf3 Order Results: Lab Order: Basic Metabolic Profile; SPEC'M 08/10/16 13:57 Test: GLUCOSE, FASTING; Value: 111; Range: 70-105; Abnormal: Above high normal; Units: MG/DL; Status: F Test: BLOOD UREA NITROGEN; Value: 14; Range: 7-18; Units: MG/DL; Status: F Test: CREATININE FOR GFR; Value: 0.90; Range: 0.70-1.30; Units: MG/DL; Status: F Test: GLOMERULAR FILTRATION RATE; Value: > 60.0; Range: >56; Status: F Test: SODIUM LEVEL; Value: 143; Range: 136-145; Units: MEQ/L; Status: F Test: POTASSIUM SERUM; Value: 3.8; Range: 3.5-5.1; Units: MEQ/L; Status: F Test: CHLORIDE LEVEL; Value: 106; Range: 98-107; Units: MEQ/L; Status: F Test: CARBON DIOXIDE LEVEL; Value: 28; Range: 21-32; Units: MEQ/L; Status: F Test: ANION GAP; Value: 9; Range: 8-16; Units: MEQ/L; Status: F Test: CALCIUM LEVEL; Value: 8.7; Range: 8.5-10.1; Units: MG/DL; Status: F Test Note: ; Units are mL/min/1.73 m2 Chronic Kidney Disease Staging per NKF: Stage I & II GFR >=60 Normal to Mildly Decreased Stage III GFR 30-59 Moderately Decreased Stage IV GFR 15-29 Severely Decreased Stage V GFR <15 Very Little GFR Left ESRD GFR <15 on [employer] Lab Order: CBC with Diff; SPEC'M 08/10/16 13:57 Test: WHITE BLOOD COUNT; Value: 5.4; Range: 4.0-10.0; Units: K/mm3; Status: F Test: RED BLOOD COUNT; Value: 4.70; Range: 4.30-6.10; Units: M/mm3; Status: F Test: HEMOGLOBIN; Value: 14.5; Range: 14.0-18.0; Units: g/dl; Status: F Test: HEMATOCRIT; Value: 44.0; Range: 42.0-52.0; Units: %; Status: F Test: MEAN CORPUSCULAR VOLUME; Value: 93.7; Range: 80.0-96.0; Units: fl; Status: F Test: MEAN CORPUSCULAR HEMOGLOBIN; Value: 30.8; Range: 27.0-33.0; Units: pg; Status: F Test: MEAN CORPUSCULAR HGB CONC; Value: 32.9; Range: 32.0-36.5; Units: g/dl; Status: F Test: RED CELL DISTRIBUTION WIDTH; Value: 14.1; Range: 11.5-14.5; Units: %; Status: F Test: PLATELET COUNT, AUTOMATED; Value: 257; Range: 150-450; Units: k/mm3; Status: F Test: NEUTROPHILS %; Value: 57.4; Range: 36.0-66.0; Units: %; Status: F Test: LYMPH %; Value: 29.0; Range: 24.0-44.0; Units: %; Status: F Test: MONO %; Value: 7.3; Range: 0.0-5.0; Abnormal: Above high normal; Units: %; Status: F Test: EOS %; Value: 2.2; Range: 0.0-3.0; Units: %; Status: F Test: BASO %; Value: 0.4; Range: 0.0-1.0; Units: %; Status: F Test: LARGE UNSTAINED CELL %; Value: 3.6; Range: 0.0-4.0; Units: %; Status: F Test: NEUTROPHILS #; Value: 3.1; Range: 1.8-7.7; Units: K/mm3; Status: F Test: LYMPH #; Value: 1.6; Range: 1.5-4.5; Units: K/mm3; Status: F Test: MONO #; Value: 0.4; Range: 0.0-0.8; Units: K/mm3; Status: F Test: EOS #; Value: 0.1; Range: 0.0-0.50; Units: K/mm3; Status: F Test: BASO #; Value: 0.0; Range: 0.0-0.2; Units: K/mm3; Status: F Test: LARGE UNSTAINED CELL #; Value: 0.2; Range: 0.0-0.4; Units: K/mm3; Status: F Lab Order: Cardiac Injury Profile; SPEC'M 08/10/16 13:57 Test: CPK CREATINE PHOSPHOKINASE; Value: 152; Range: 39-308; Units: U/L; Status: F Test: CK-MB VALUE MASS; Value: 1.9; Range: 0.0-3.6; Units: NG/ML; Status: F Test: MB/CK RELATIVE INDEX; Value: 1.25; Range: < OR =4; Status: F Test Note: ; DIAGNOSIS CRITERIA MMB ng/ml Relative Index (RI) NON-AMI < or = 5 N/A FRYE ZONE > 5 < or = 4 AMI > 5 > 4 Lab Order: Troponin; SPEC'M 08/10/16 13:57 Test: TROPONIN I; Value: < 0.02; Range: < 0.10; Units: NG/ML; Status: F Test Note: ; Troponin I Reference Interval for [employer] LOCI: 99th Percentile= 0.00-0.045 ng/ml Risk Stratification: <= 0.10 ng/ml Decreased Risk for Adverse Clinical Events. 0.10-1.50 ng/ml Increased Risk for Adverse Clinical Events. Evaluation of additional criterion and/or repeat testing in 2-6 hours is suggested to rule out myocardial damage. >= 1.50 ng/ml Indicative of Myocardial Injury. Lab Order: CARDIAC MARKER PANEL; SPEC'M 08/10/16 19:50 Test: CPK CREATINE PHOSPHOKINASE; Value: 121; Range: 39-308; Units: U/L; Status: F Test: CK-MB VALUE MASS; Value: 1.3; Range: 0.0-3.6; Units: NG/ML; Status: F Test: MB/CK RELATIVE INDEX; Value: 1.07; Range: < OR =4; Status: F Test: TROPONIN I; Value: < 0.02; Range: < 0.10; Units: NG/ML; Status: F Test Note: ; DIAGNOSIS CRITERIA MMB ng/ml Relative Index (RI) NON-AMI < or = 5 N/A FRYE ZONE > 5 < or = 4 AMI > 5 > 4 Radiology Order: EKG-ADULT Test: EKG-ADULT REASON FOR EXAMINATION: Chest Pain; Stationary ECG Study; [facility] [place] - ED; ; Test Date: 2016-08-10; Pat Name: NEVILLE DORMAN Department:; Room: -; 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; : 1960 Requested By: LELO Forte; Order Number: [id number] Reading MD: Rocío Webster; Measurements; Intervals [place]; Rate: 65 P: -90; MD: 167 QRS: 26; QRSD: 101 T: 4; QT: 388; QTc: 406; Interpretive Statements; SINUS RHYTHM; NSTTW ABNORMALITY; Electronically Signed On 08-11-2016 13:04:11 EST by Rocío Webster; Radiology Order: Chest, 2 View (pa\E\lat) Test: Chest, 2 View (pa\E\lat) REASON FOR EXAMINATION: Shortness of Breath; PA and lateral chest:; ; Comparison is 07/05/2012.; ; There is a focal zone of discoid atelectasis peripherally in the right upper; lobe.; ; There is a small stable nodule inferiorly in the right lung, unchanged,; compatible with granuloma.; ; The lung allred otherwise clear. No pleural effusions. 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 11 21:25 Discharge Assessment: Patient awake, alert and oriented x 3. No cognitive and/or mlc functional deficits noted. Patient verbalized understanding of disposition instructions. patient administered narcotics - no. The following High Risk Discharge criteria are identified: None. Discharged to home ambulatory. Condition: good Condition: stable. Discharge instructions given to patient, Instructed on discharge instructions, follow up and referral plans. Demonstrated understanding of instructions, Pt was receptive of discharge instructions/ teaching. No special radiology studies were completed. Property sent home with patient. 21:26 Patient left the ED. mlc Signatures: Dispatcher [employer] EDMarino Butler, RN Markell Beasley, Reg Reg kf3 Lelo Hackett MD MD br1 Alma Christie, BATTERY CHECKER BATTERY CHECKER ar3 Frances Valera, BATTERY CHECKER BATTERY CHECKER Jigna DegrootRN RN Farhat Wilhelm, DO cs11 Roselia Molina RN RN mlc Beck, Gabriela gjb Oosthuizen, Jane, DO DO jo4 Sonal Butler Chart Complete MTDD
--- NOTE | 2016-08-12 22:27 | EDDOCDS ---
Physician Documentation [facility] Name: Neville Dorman Age: 55 yrs Sex: Male : 1960 Arrival Date: 08/10/2016 Time: 13:41 Bed 10 Private MD: Disposition: 08/10 18:38 I have independently interviewed and examined the patient, and I agree with the br1 investigation, diagnosis and treatment plan as documented by the Resident. Disposition: 08/10/16 21:16 Discharged to Home/Self Care. Impression: Chest pain, unspecified, Syncope and collapse. - Condition is Stable. - Discharge Instructions: Near-Syncope. - Medication Reconciliation, Local Pharmacy Hours form. - Follow up: Rajat Motley MD; When: Call to arrange an appointment; Reason: Recheck today's complaints. - Problem is new. - Symptoms have improved. Historical: - Allergies: Cephalexin; - Home Meds: 1. aspirin 81 mg oral TbEC once daily 2. Crestor 10 mg Oral tab 1 tab once daily 3. metformin 750 mg Oral Tb24 1 tab once daily 4. Protonix 40 mg Oral TbEC 1 tab once daily 5. lisinopril 20 mg oral tab once daily - PMHx: Anxiety; Diabetes - NIDDM: controlled; GERD; Hypercholesterolemia; Hypertension; left hip replacement; SD; - PSHx: Hernia repair; Orthopedic Surgery; Coronary Stents; - Social history: Smoking status: Patient states former smoker of tobacco. No barriers to communication noted, The patient speaks fluent Nepali, Speaks appropriately for age. - Family history: Not pertinent. - : The pt / caregiver states he / she is not on anticoagulants. Home medication list is obtained from pill bottles. - Exposure Risk Screening:: None identified. Vital Signs: 13:51 BP 138 / 78 (auto/); bcj 13:52 Pulse 66 MON; bcj 13:52 BP 146 / 81; Pulse 80; Resp 16; Temp 97.9; Pulse Ox 97% on R/A; Weight 132.45 kg / 292 bcj lbs; Height 6 ft. 2 in. (187.96 cm); Pain 0/10; 17:28 BP 142 / 67 (auto/); bcj 17:29 Pulse 62 MON; Pulse Ox 97% ; bcj 17:43 BP 149 / 63 (auto/); bcj 17:43 Pulse 62 MON; Pulse Ox 97% ; bcj 17:58 BP 105 / 52 (auto/); bcj 17:58 Pulse 64 MON; Pulse Ox 95% ; bcj 18:13 BP 124 / 74 (auto/); bcj 18:13 Pulse 62 MON; Pulse Ox 95% ; bcj 18:28 BP 130 / 72 (auto/); mlc 18:28 Pulse 62 MON; Pulse Ox 95% ; mlc 18:58 BP 118 / 67 (auto/); mlc 18:58 Pulse 66 MON; Pulse Ox 95% ; mlc 19:28 Pulse 72 MON; Pulse Ox 93% ; mlc 19:28 BP 137 / 62 (auto/); mlc 19:43 BP 140 / 63 (auto/); mlc 19:53 Pulse 70 MON; Pulse Ox 96% ; mlc 19:58 Pulse 68 MON; Pulse Ox 92% ; mlc 19:58 BP 132 / 61 (auto/); mlc 20:13 BP 114 / 53 (auto/); mlc 20:13 Pulse 68 MON; Pulse Ox 94% ; mlc 20:28 BP 126 / 61 (auto/); mlc 20:28 Pulse 62 MON; Pulse Ox 91% ; mlc 20:43 BP 131 / 62 (auto/); mlc 20:43 Pulse 62 MON; Pulse Ox 91% ; mlc 20:58 BP 129 / 58 (auto/); mlc 21:07 Pulse 64 MON; Pulse Ox 91% ; mlc 21:25 BP 137 / 75; Pulse 68; Resp 20; Temp 98.1; Pulse Ox 94% ; Pain 0/10; mlc 13:52 Body Mass Index 37.49 (132.45 kg, 187.96 cm) [facility] MDM: 13:45 ECG WITH READING ER PHYS+CARDIAG ordered. EDMS 13:55 [employer] Analyst/Pulse Ox/q 30 min VS ordered. br1 13:55 IV Saline Lock ordered. br1 13:55 Rhythm Strip to chart ordered. br1 13:55 Undress patient appropriately for examination ordered. br1 13:56 Basic Metabolic Profile Ordered. EDMS 13:56 CBC with Diff Ordered. EDMS 13:56 Cardiac Injury Profile Ordered. EDMS 13:56 Troponin Ordered. EDMS 14:58 Vital Signs ordered. br1 15:00 Cardiac Injury Profile Reviewed. jo4 15:00 Troponin Reviewed. jo4 15:00 Basic Metabolic Profile Reviewed. jo4 15:01 CBC with Diff Reviewed. jo4 15:01 Orthostatic VS ordered. jo4 15:02 Redraw CIP &Troponin (put time in details section) ordered. jo4 15:02 Repeat EKG (put time details section) ordered. jo4 15:05 Chest, 2 View (pa\E\lat) Ordered. EDMS 15:15 Repeat EKG (put time details section) complete. ar3 15:15 Redraw CIP &Troponin (put time in details section) complete. ar3 15:16 CARDIAC MARKER PANEL Ordered. EDMS 15:17 ECG WITH READING ER PHYS ordered. EDMS 16:02 Financial registration complete. gjb 16:37 [facility] Payment Agreement was scanned into [facility] and attached to record. gjb 17:06 REGULAR+DIET ordered. EDMS 18:17 Chest, 2 View (pa\E\lat) Reviewed. jo4 18:38 ED course: Seen with resident agree with findings. Patient has episode of weakness, br1 fatigue, diaphoresis, near syncope. No chest pain or shortness of breath and symptoms now resolved. Labs, EKG, chest Xray unrevealing. Plan serial EKG, enzymes, re-eval. Patient agrees with plan.. 21:14 CARDIAC MARKER PANEL Reviewed. cs11 08/11 15:42 ECG/EKG was scanned into [employer] and attached to record. kf3 16:06 T-Sheet-- Draft Copy was scanned into [employer] and attached to record. klr 17:03 ECG/EKG was scanned into [employer] and attached to record. kf3 Signatures: Dispatcher [employer] EDNV Marino Castorena RN RN bcj Fiddler, Kris, Reg Reg kf3 Michael Hackett MD MD br1 Alma Christie, WAY INSPECTOR WAY INSPECTOR ar3 Farhat Knott, DO DO cs11 Roselia Molina RN RN mlc Beck, Gabriela b Rina Mcpherson, DO DO jo4 Sonal Butler klbo The chart was reviewed and I authenticate all verbal orders and agree with the evaluation and treatment provided.Attachments: 08/10 16:37 [facility] Payment Agreement [facility] 08/11 15:42 ECG/EKG kf3 16:06 T-Sheet-- Draft Copy klr 17:03 ECG/EKG kf3 Chart Complete MTDD
== END 2016-08-10 21:26 | disposition home or self-care (01) ==
LOC: M ED 13:41
DX: R55 Syncope and collapse (principal); R07.9 Chest pain, unspecified; E11.9 Type 2 diabetes mellitus without complications; I10 Essential (primary) hypertension; F41.9 Anxiety disorder, unspecified; K21.9 Gastro-esophageal reflux disease without esophagitis; E78.00 Pure hypercholesterolemia, unspecified; I25.2 Old myocardial infarction; Z79.899 Other long term (current) drug therapy; Z79.82 Long term (current) use of aspirin; Z79.84 Long term (current) use of oral hypoglycemic drugs; Z88.1 Allergy status to other antibiotic agents; Z95.5 Presence of coronary angioplasty implant and graft; Z87.891 Personal history of nicotine dependence

== ENCOUNTER 2018-01-01 09:56 | Day surgery (SDC) | payer OTHER ==
[2018-01-01] MEDS ORDERED: NS 1,000 ML IV (10:15)
[2018-01-01] MEDS ORDERED: MIDAZOLAM INJ 2 MG/2 ML VIAL (J2250) As Ordered (11:28)
[2018-01-01] MEDS ORDERED: LIDOCAINE 2% INJ 100 MG/5 ML SDV (FOR ANES.) As Ordered (11:50)
[2018-01-01] MEDS ORDERED: PROPOFOL 200 MG/20 ML VIAL As Ordered ×2 (11:50)
== END 2018-01-01 12:46 | disposition home or self-care (01) ==
LOC: M OPP 09:56
DX: K62.5 Hemorrhage of anus and rectum (principal); R10.9 Unspecified abdominal pain; D12.3 Benign neoplasm of transverse colon; K57.30 Diverticulosis of large intestine without perforation or abscess without bleeding; K52.9 Noninfective gastroenteritis and colitis, unspecified; I25.10 Atherosclerotic heart disease of native coronary artery without angina pectoris; I25.2 Old myocardial infarction; I10 Essential (primary) hypertension; E78.5 Hyperlipidemia, unspecified; Z95.5 Presence of coronary angioplasty implant and graft; E11.9 Type 2 diabetes mellitus without complications; K57.32 Diverticulitis of large intestine without perforation or abscess without bleeding; K21.9 Gastro-esophageal reflux disease without esophagitis; M19.90 Unspecified osteoarthritis, unspecified site; F41.9 Anxiety disorder, unspecified; R06.83 Snoring; G47.30 Sleep apnea, unspecified; Z96.642 Presence of left artificial hip joint; Z89.422 Acquired absence of other left toe(s); Z87.891 Personal history of nicotine dependence; Z88.1 Allergy status to other antibiotic agents; Z79.82 Long term (current) use of aspirin; Z79.899 Other long term (current) drug therapy; Z79.84 Long term (current) use of oral hypoglycemic drugs
CPT/HCPCS: 45385

== ENCOUNTER 2018-07-26 17:11 | Emergency (ER) | payer OTHER ==
[~2018-07-26] VITALS: Ht 188 cm; Wt 129.6 kg
[2018-07-26 17:11] VITALS: BP 143/73
[~2018-07-26 17:11] MED LIST: ASPI1TAB15 PO; ATOR1TAB21 PO; CIPR500T3 PO; IBUP-1114 PO; LISI-538 PO; LORA0.5T11; METF750T PO; METR-201 PO; NAPR250T4 PO; OXYC1TAB23 PO; OXYCODONE-ACET PO; RANI15TA PO; SILD50TA; SIME80TA PO
[2018-07-26] MEDS ORDERED: PENI500T (17:22)
[2018-07-26] MEDS ORDERED: CYCL10TA PO (18:17)
[2018-07-26] MEDS ORDERED: IBUP80TA PO (18:17)
[2018-07-26] MEDS ORDERED: IBUPROFEN 800 MG TAB PO ONE (18:30)
== END 2018-07-26 18:36 | disposition home or self-care (01) ==
LOC: M ED 17:11
DX: M51.37 Other intervertebral disc degeneration, lumbosacral region (principal); M54.17 Radiculopathy, lumbosacral region; I10 Essential (primary) hypertension; E11.9 Type 2 diabetes mellitus without complications; I25.10 Atherosclerotic heart disease of native coronary artery without angina pectoris; F41.9 Anxiety disorder, unspecified; Z88.1 Allergy status to other antibiotic agents

== ENCOUNTER → 2024-06-04 | Outpatient (REF) | payer OTHER ==
[~2024-06-04] MED LIST changes: +ASPI-546 PO; -ASPI1TAB15 PO; +CYCL-707 PO; +IBUP80TA PO; -LISI-538 PO; +LISI20TA33 PO; -LORA0.5T11; +LORA0.5T5; -METF750T PO; +METF750T36 PO; -METR-201 PO; +METR-265 PO; +NAPR-849 PO; -NAPR250T4 PO; +PENI500T; +SIME80CH5 PO; -SIME80TA PO
== END ==
LOC: M LAB REF 16:08
PROVIDERS: ATTEND Physician Assistant Medical
DX: R05.9 Cough, unspecified (principal)